=== PATIENT | female | born 1985 | race Hispanic/Latino ===

== ENCOUNTER 2019-03-30 13:24 | Emergency (ER) | payer OTHER ==
[~2019-03-30] VITALS: Ht 152.4 cm; Wt 99.7 kg
[2019-03-30 13:26] VITALS: BP 168/81
[2019-03-30] MEDS ORDERED: FAMO40TA3 (13:32)
[2019-03-30] MEDS ORDERED: ONDA4TAB6 (13:32)
[2019-03-30] MEDS ORDERED: PANT40TA3 (13:32)
[2019-03-30] MEDS ORDERED: AUGM875T28 PO (14:11)
[2019-03-30] MEDS ORDERED: AUGMENTIN 875 MG TAB PO ONE (14:15)
[2019-03-30] MEDS ORDERED: ADACEL/BOOSTRIX VACCINE (DIPHTH/PERTUSS/ACELL/TETANUS)0.5ML SYR (90715) IM ONE (14:15)
== END 2019-03-30 14:30 | disposition home or self-care (01) ==
LOC: M ED 13:24
DX: S80.871A Other superficial bite, right lower leg, initial encounter (principal); S80.811A Abrasion, right lower leg, initial encounter; W55.01XA Bitten by cat, initial encounter; W55.03XA Scratched by cat, initial encounter; Y92.9 Unspecified place or not applicable; Y93.9 Activity, unspecified; Y99.9 Unspecified external cause status; Z79.899 Other long term (current) drug therapy

== ENCOUNTER 2019-04-30 10:07 | Day surgery (SDC) | payer OTHER ==
[~2019-04-30] VITALS: Ht 152.4 cm; Wt 77.9 kg
[~2019-04-30 10:07] MED LIST: AUGM875T28 PO; FAMO40TA3 PO; LIDOCAINE 1% MDV 20ML VIAL SQ PRN; LR 1,000 ML IV SCH; ONDA4TAB6 PO; PANT40TA3 PO
[2019-04-30] MEDS ORDERED: MIDAZOLAM INJ 2 MG/2 ML VIAL (J2250) As Ordered ONE (10:09)
[2019-04-30] MEDS ORDERED: propofoL 200 MG/20 ML VIAL As Ordered ONE ×3 (10:09→13:24)
[2019-04-30] MEDS ORDERED: LIDOCAINE 2% INJ 100 MG/5 ML SDV (FOR ANES.) As Ordered ONE (10:09)
[2019-04-30] MEDS ORDERED: fentaNYL 100 MCG/2 ML INJECTION (J3010) As Ordered ONE (10:09)
[2019-04-30 10:56] LABS: HEMATOCRIT 44.6 % (36.0-47.0); HEMOGLOBIN 14.3 g/dl (12.0-15.5)
[2019-04-30 11:23] LABS: HCG, SERUM QUALITATIVE NEGATIVE (NEGATIVE)
[2019-04-30] MEDS ORDERED: IODINE STRONG SOLN 15 ML BTL As Ordered ONE (12:40)
[2019-04-30] MEDS ORDERED: LIDOCAINE W/EPINEPHRINE 1% 20ML VIAL As Ordered ONE (12:41)
[2019-04-30] MEDS ORDERED: KETOROLAC 60 MG/2 ML VIAL (J1885) As Ordered ONE (13:12)
[2019-04-30] MEDS ORDERED: ONDANSETRON 4MG/2ML VIAL (J2405) As Ordered ONE (13:12)
[2019-04-30 14:25] VITALS: BP 122/71
--- NOTE | 2019-05-01 10:38 | RO ---
DATE OF OPERATION: 04/30/2019 STAFF SURGEON: Nata Busby MD MINING TEACHER: None CLINICAL SERVICE: Gynecology (COIL MACHINE OPERATOR). INDICATION FOR OPERATION: Maria Fernanda is a 34-year-old G0 with high-grade squamous intraepithelial lesion of the cervix diagnosed based on colposcopy. She has a history of prior supracervical hysterectomy that was done in emergent circumstances when she was having a myomectomy performed. PREOPERATIVE DIAGNOSIS: High-grade squamous intraepithelial lesion (HGSIL) of the cervix. POSTOPERATIVE DIAGNOSIS: High-grade squamous intraepithelial lesion (HGSIL) of the cervix. MATERIAL FORWARDED TO THE LABORATORY FOR EXAMINATION: 1. 7 o'clock LEEP 2. Superficial LEEP. 3. Deep LEEP. INFECTION CLASSIFICATION: 2. ESTIMATED BLOOD LOSS: 20 mL. INTRAVENOUS (IV) FLUIDS: 800 mL lactated Ringer. URINE OUTPUT: Not measured. OPERATION PERFORMED: Loop electrosurgical excision procedure (LEEP). DESCRIPTION OF OPERATION: After obtaining consent, the patient was taken to the operating room where she underwent monitored anesthesia care (MAC) with IV sedation. She was placed in low lithotomy position, and the perineum and vagina were prepped and draped in sterile fashion. Time-out was performed to confirm patient name, date of , and procedure. The team was in agreement. Coated speculum was inserted in the vagina with good visualization of the cervix. Coated tenaculum was placed on the anterior lip of the cervix. Lugol's was placed over the face of the cervix, and there was a central nonstaining portion that extended out at 7 o'clock. Several mL of 1% lidocaine with epinephrine were injected for an intracervical block. The LEEP was completed in three passes. First pass was at 7 o'clock. Second was a superficial pass over the center of the cervix, and then there was a deep pass in the center of the cervix. Electrocautery was applied to the LEEP bed with adequate hemostasis noted. Monsel's solution was applied afterwards with adequate hemostasis. The patient tolerated the procedure well. Speculum and tenaculum were removed from the vagina, and counts were correct times two. The patient was awakened from anesthesia and transferred to the recovery room in stable condition. [facility]
== END 2019-04-30 14:39 | disposition home or self-care (01) ==
LOC: M SDC 10:07
PROVIDERS: ATTEND Obstetrics & Gynecology
DX: N87.1 Moderate cervical dysplasia (principal); K21.9 Gastro-esophageal reflux disease without esophagitis; Z79.899 Other long term (current) drug therapy
CPT/HCPCS: 36415; 57522; 84703; 85014; 85018; 86850; 86900; 86901; 88307; J1885; J2250; J2405; J3010

== ENCOUNTER → 2024-01-04 | Outpatient (CLI) | payer OTHER ==
[~2024-01-04] MED LIST changes: -LIDOCAINE 1% MDV 20ML VIAL SQ PRN; -LR 1,000 ML IV SCH; +ONDA-282 PO; -ONDA4TAB6 PO; +PANT40TA29 PO; -PANT40TA3 PO
== END ==
LOC: M WHC 15:32
PROVIDERS: ATTEND Student in an Organized Health Care Education/Training Program
DX: Z12.31 Encounter for screening mammogram for malignant neoplasm of breast (principal)

== ENCOUNTER → 2024-01-30 | Outpatient (CLI) | payer OTHER | LOC: M WHC 13:55 | PROVIDERS: ATTEND Student in an Organized Health Care Education/Training Program | DX: Z80.3 Family history of malignant neoplasm of breast (principal) ==